=== PATIENT | male | born 1965 | race Caucasian/White ===

== ENCOUNTER → 2020-11-04 15:29 | Outpatient (BNVA) | payer SELFPAY | PROVIDERS: Family Provider Family Medicine; PCP Family Medicine; Visit Provider Orthopaedic Surgery | DX: M54.5 Low back pain (principal); M25.551 Pain in right hip | CPT/HCPCS: 72110; 73502 ==

== ENCOUNTER 2021-07-31 11:34 | Outpatient (CLI) | payer MEDICAID, SELFPAY ==
--- NOTE | 2021-07-31 11:43 | MR_ITS ---
WS: [id number] MRI RIGHT SHOULDER NONCONTRAST TECHNIQUE: Sagittal T2, coronal T1, T2 and proton density imaging. Axial gradient PDE imaging. CLINICAL INFORMATION: PAIN IN RIGHT SHOULDER COMPARISON: None. FINDINGS: Moderate degenerative arthritis AC joint with mild edema. Mild downsloping of the acromion with sligh t subacromial spurring. Small amount of subacromial/subdeltoid fluid. Slight impingement on the dista l supraspinatus with tendinopathy. Tiny undersurface tears at the distal supraspinatus insertion. No full-thickness tears. Tendinopathy distal infraspinatus. Normal teres minor. Tendinopathy subscapular is tendon which is intact. Biceps tendon is intact within the bicipital groove. Intra-articular biceps tendon is edematous and e nlarged with fluid signal partial intrasubstance high-grade tear and tendinopathy. Biceps labral anch or appears intact. Degenerative fraying of the glenoid labrum. Mild bone marrow edema at the greater tuberosity. MR/MR shoulder RT wo con* [id number] IMPRESSION: 1. Moderate degenerative arthritis AC joint with mild edema and mild downslopi ng of the acromion with subacromial spurring. 2. Small undersurface tears distal supraspinatus insertion. 3. Tendinopathy supraspinatus supraspinatus and subscapularis. 4. Tendinopathy with partial intrasubstance high-grade tear involving the intr a-articular biceps tendon with T2 signal abnormality. Biceps tendon is intact w ithin the bicipital groove. 5. Biceps labral anchor appears intact.
== END 2021-07-31 11:35 | disposition home or self-care (01) ==
LOC: RAD 11:37
PROVIDERS: PCP Family Medicine; Visit Provider Physician Assistant
DX: M19.011 Primary osteoarthritis, right shoulder (principal); M75.101 Unspecified rotator cuff tear or rupture of right shoulder, not specified as traumatic
CPT/HCPCS: 73221

== ENCOUNTER → 2021-09-23 13:52 | Outpatient (BNVA) | payer MEDICAID, SELFPAY | PROVIDERS: PCP Family Medicine; Referring Provider Physician Assistant; Visit Provider Specialist | DX: M67.911 Unspecified disorder of synovium and tendon, right shoulder (principal); S46.211A Strain of muscle, fascia and tendon of other parts of biceps, right arm, initial encounter; X58.XXXA Exposure to other specified factors, initial encounter; M75.41 Impingement syndrome of right shoulder; M19.011 Primary osteoarthritis, right shoulder; F17.210 Nicotine dependence, cigarettes, uncomplicated | CPT/HCPCS: 73030; 99204; 99213 ==

== ENCOUNTER → 2023-01-24 11:02 | Outpatient (BNVA) | payer MEDICAID, SELFPAY | PROVIDERS: PCP Family Medicine; Visit Provider Nurse Practitioner Family | DX: R42 Dizziness and giddiness (principal); R69 Illness, unspecified; B34.9 Viral infection, unspecified; R73.9 Hyperglycemia, unspecified; T14.8XXA Other injury of unspecified body region, initial encounter; W57.XXXA Bitten or stung by nonvenomous insect and other nonvenomous arthropods, initial encounter | CPT/HCPCS: 82962; 87400; 87426 ==

== ENCOUNTER → 2023-10-20 08:54 | Outpatient (BNVA) | payer MEDICAID, SELFPAY | PROVIDERS: PCP Physician Assistant; Referring Provider Internal Medicine; Visit Provider Internal Medicine | DX: E11.9 Type 2 diabetes mellitus without complications (principal); E78.5 Hyperlipidemia, unspecified | CPT/HCPCS: 80053; 80061; 82043; 83036; 83721 ==

== ENCOUNTER → 2024-01-03 10:25 | Outpatient (BNVA) | payer MEDICAID, SELFPAY | PROVIDERS: PCP Physician Assistant; Visit Provider Internal Medicine | DX: Z12.5 Encounter for screening for malignant neoplasm of prostate (principal); E11.9 Type 2 diabetes mellitus without complications | CPT/HCPCS: 36415; 80053; 80061; 82044; 83036; G0103 ==